=== PATIENT | female | born 1965 | race Caucasian/White ===

== ENCOUNTER 2016-09-19 15:55 | Outpatient (CLI) | payer OTHER ==
--- NOTE | 2016-09-19 17:24 | DIAGNOSTIC IMAGING REPORT ---
PROCEDURE: CT IVP CLINICAL INDICATION: MICROSCOPIC HEMATURIA, left flank pain TECHNIQUE: Initially, noncontrast axial images were obtained of the entire abdomen and pelvis. 125 ml of Isovue 300 was injected intravenously, and axial images were obtained of the kidneys in the nephrographic phase, and subsequently through the entire abdomen and pelvis in the excretory phase. Axial CT images through the pelvis in the delayed phase were obtained. Sagittal and coronal reformations were created. COMPARISON: 03/18/2015 FINDINGS: NONCONTRAST ABDOMEN: No intrarenal calcifications. No unusual calcifications in the liver or spleen. CONTRAST ABDOMEN: The kidneys uptake and excrete IV contrast uniformly and symmetrically. No cysts. No solid renal mass. The excretory images demonstrate no filling defects in the intrarenal or ureteral collecting system. The lung bases, liver, gallbladder, adrenal glands, spleen, pancreas, stomach, upper bowel loops, and mesentery appear normal. NONCONTRAST PELVIS: No suspicious distal ureteral calcifications or hydroureter. No bladder calcifications. CONTRAST PELVIS: The urinary bladder demonstrates normal wall thickness without suspicious irregularity. No bladder mass or unusual enhancement. Mildly increased amount of retained stool diffusely. Normal appendix. The reproductive organs are normal for age. Pelvic vessels are normal. No suspicious mass or free pelvic fluid. Mild left facet degeneration at L4-5. Otherwise normal osseous structures. IMPRESSION: 1. Normal CT IVP. All CT scans at this facility use dose modulation, iterative reconstruction, and/or weight-based dosing when appropriate to reduce radiation dose to as low as reasonably achievable.
== END 2016-09-19 23:00 ==
LOC: CT SRH 15:55
DX: R31.29 Other microscopic hematuria (principal)